=== PATIENT | female | born 1970 | race Caucasian/White ===

== ENCOUNTER 2017-07-21 08:18 | Day surgery (SDC) | payer SELFPAY ==
--- NOTE | 2017-07-21 10:38 | CP.SDSHP ---
Same Day Surgery H & P - History Proposed Procedure: US guided FNA of right thyroid nodule Pre-Op Diagnosis: Right thyroid nodule - Allergies Allergies: Allergies No Known Allergies Allergy (Verified 12/12/16 16:01) - Physical Exam Vital Signs: Vital Signs 07/21/17 08:28 Temperature 97.6 F Pulse Rate 79 Respiratory 20 Rate Blood Pressure 130/88 O2 Sat by Pulse 97 Oximetry Mental Status: Alert & Oriented x3 Neuro: WNL Heart: WNL Lungs: WNL - Impression Impression: Pt with a complex 3 cm right thyroid nodule referred for US guided FNA. Plan US guided FNA. Informed consent obtained. Pt. Evaluated Today:Candidate for Anesthesia & Procedure: No - Date & Time Date: 07/21/17 Time: 10:20 Short Stay Discharge - Short Stay Discharge Admitting Diagnosis/Reason for Visit: THYROID NODULE
--- NOTE | 2017-07-21 10:40 | PCM.SURG1 ---
Surgeon's Initial Post Op Note - Surgeon's Notes Surgeon: Ashutosh Bartlett MD Tool Pusher: NONE Type of Anesthesia: Local Pre-Operative Diagnosis: Right thyroid nodule Operative Findings: US showed a complex 3 cm right thyroid nodule. Post-Operative Diagnosis: Right thyroid nodule Operation Performed: US guided FNA Specimen/Specimens Removed: 25 g FNA x 4 passes Estimated Blood Loss: EBL {In ML}: 0 Blood Products Given: N/A Drains Used: No Drains Post-Op Condition: Good Date of Surgery/Procedure: 07/21/17 Time of Surgery/Procedure: 10:35
[2017-07-21 11:07] VITALS: RESP 14; TEMP 98.8
--- NOTE | 2017-07-21 11:39 | US ---
PROCEDURE: Date of Procedure: 07/21/2017 PROCEDURE: 1. Ultrasound guided FNA of right thyroid nodule, CPT 80661 2. Ultrasound guidance for FNA, 68656 Medications: 3cc 1% Lidocaine HISTORY: Enlarged right thyroid nodule. TECHNIQUE: Following informed consent and procedure time-out, a limited ultrasound patient's neck confirmed the presence of a 3 cm x 1.9 cm complex right thyroid nodule which is predominantly solid. After the patient's neck was prepped and draped in the usual sterile fashion, the skin was anesthetized with 1% lidocaine. Ultrasound-guided fine needle aspiration was then performed of the dominant right thyroid nodule. A total of 4 passes were made into the nodule with 25 gauge needle under ultrasound guidance. The FNA specimen was sent for routine pathology. Post biopsy ultrasound showed no hematoma. IMPRESSION: Ultrasound-guided FNA of the dominant right thyroid nodule.
[2017-07-21 12:23] VITALS: BP 130/90; PULSE 60; O2SAT 98
== END 2017-07-21 11:45 | disposition home or self-care (01) ==
LOC: C.SPRAD 08:18
PROVIDERS: ATTEND Radiology Vascular & Interventional Radiology
DX: E04.2 Nontoxic multinodular goiter (principal)

== ENCOUNTER 2017-10-12 14:01 | Emergency (ER) | payer SELFPAY ==
[2017-10-12] MEDS ORDERED: Naproxen 550 mg Tab PO STA (14:55)
[2017-10-12] MEDS ORDERED: Naproxen 550 mg Tab PO ONE (15:08)
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
[2017-10-12 15:47] VITALS: BP 144/85; PULSE 73; RESP 18; TEMP 98; O2SAT 96
== END 2017-10-12 15:40 | disposition home or self-care (01) ==
LOC: C.ER 14:01
DX: M54.5 Low back pain (principal); I83.93 Asymptomatic varicose veins of bilateral lower extremities

== ENCOUNTER 2018-03-02 13:10 | Emergency (ER) | payer SELFPAY ==
[2018-03-02 13:11] VITALS: BMI 40.9
[2018-03-02 13:21] VITALS: BP 128/89; PULSE 66; RESP 16; TEMP 98.1; O2SAT 98
--- NOTE | 2018-03-02 14:10 | C.PDOC ---
History Of Present Illness 47 y/o female presents with painful swollen area to upper lip, started after she popped a pimple a few days ago. pt denies fever. c/o pain at site. no active drainage. no hx dm. Time Seen by Provider: 03/02/18 13:31 Chief Complaint (Nursing): Abnormal Skin Integrity History Per: Patient History/Exam Limitations: no limitations Onset/Duration Of Symptoms: Days (3) Current Symptoms Are (Timing): Still Present Location Of Injury: Posterior: Face (upper lip) Quality Of Symptoms: Painful, Swollen. denies: Draining Severity: Moderate Past Medical History Reviewed: Historical Data, Nursing Documentation, Vital Signs Vital Signs: Last Vital Signs Temp 98.1 F 03/02/18 13:18 Pulse 66 03/02/18 13:18 Resp 16 03/02/18 13:18 BP 128/89 03/02/18 13:18 Pulse Ox 98 03/02/18 13:18 - Medical History PMH: Anxiety - [facility] Procedures DX ULTRASOUND-HEAD/NECK (02/01/15) PERCUTAN NEEDLE BX OF THYROID GLAND (02/01/15) Family History: States: Unknown Family Hx - Social History Hx Tobacco Use: No Hx Alcohol Use: No Hx Substance Use: No - Immunization History Hx Tetanus Toxoid Vaccination: No Hx Influenza Vaccination: No Hx Pneumococcal Vaccination: No Review Of Systems Constitutional: Negative for: Fever ENT: Positive for: Mouth Pain (lip) Physical Exam - Physical Exam Appears: Non-toxic, No Acute Distress Skin: Warm, Dry, Other (upper lip with firm indurated 1 cm mass with tenderness and erythema, no drainage noted. no fluctuance) ED Course And Treatment O2 Sat by Pulse Oximetry: 98 Medical Decision Making Medical Decision Making: early abscess to upper lip. will tx with bactrim, keflex, warm compresses, f/u pmd, ent, gen sx. pt advised to use warm compresses, f/u outpt and return for worsening swelling. redness or fever. Disposition Counseled Patient/Family Regarding: Diagnosis, Need For Followup, Rx Given - Disposition Referrals: Nick Navarro MD [Staff Provider] - Evert Falcon MD [Staff Provider] - Janet Galarza MD [Staff Provider] - Disposition: HOME/ ROUTINE Disposition Time: 14:16 Condition: GOOD Additional Instructions: Please take antibiotics as prescribed. Take ibuprofen 600 mg by mouth for pain (with food); take tylenol in between doses of ibuprofen if needed for pain. Apply warm compresses several times a day to lip area. Follow up in medical clinic, or wiht Dr Navarro (ear/nose throat) or Dr blankenship, general surgery. Return to ER for fever, worse swelling or redness to lip or any other concerns. Prescriptions: Acetaminophen [Tylenol 325mg tab] 650 mg PO Q6 #30 tab Cephalexin [cephalexin] 500 mg PO Q6 #28 cap Sulfamethoxazole/Trimethoprim [Bactrim DS 800 mg-160 mg] 1 tab PO BID #20 tab Instructions: Skin Abscess Forms: [facility] (Ar[place]ine), General Discharge Instructions - Clinical Impression Clinical Impression: Abscess of lip
== END 2018-03-02 14:28 | disposition home or self-care (01) ==
LOC: C.ER 13:10
DX: K13.0 Diseases of lips (principal)

== ENCOUNTER 2018-05-03 07:56 | Day surgery (SDC) | payer OTHER ==
[2018-05-03 08:37] VITALS: BP 152/93; PULSE 78; RESP 20; TEMP 97.8; O2SAT 98
--- NOTE | 2018-05-03 10:38 | CP.SDSHP ---
Same Day Surgery H & P - History Proposed Procedure: US guided FNA Pre-Op Diagnosis: Thyroid nodule - Allergies Allergies: Allergies No Known Allergies Allergy (Verified 03/02/18 13:18) - Physical Exam Vital Signs: Vital Signs 05/03/18 08:00 Temperature 97.8 F Pulse Rate 78 Respiratory 20 Rate Blood Pressure 152/93 H O2 Sat by Pulse 98 Oximetry - Impression Impression: Pt with thyroid nodule s/p FNA of right thyroid nodule. Pt referred for FNA of left thyroid nodule. US performed: There are no nodules seen in the left thyroid that meet criteria for FNA. No interevention was performed. Referring MD was called and I am awaiting call back. Pt. Evaluated Today:Candidate for Anesthesia & Procedure: No Short Stay Discharge - Short Stay Discharge Admitting Diagnosis/Reason for Visit: DX:E04.1-THYROID NODULE Disposition: HOME/ ROUTINE
== END 2018-05-03 10:40 | disposition home or self-care (01) ==
LOC: C.SPRAD 07:56
PROVIDERS: ATTEND Radiology Vascular & Interventional Radiology
DX: E04.1 Nontoxic single thyroid nodule (principal); Z53.8 Procedure and treatment not carried out for other reasons

== ENCOUNTER 2018-10-20 14:00 | Emergency (ER) | payer OTHER ==
[2018-10-20 14:00] VITALS: BMI 38.3
[2018-10-20 14:33] VITALS: BP 149/92; PULSE 98; RESP 16; TEMP 98.1; O2SAT 100
[2018-10-20] MEDS ORDERED: Bacitracin Ointment 30 GM TUBE TOP ONE (14:41)
[2018-10-20] MEDS ORDERED: Tetanus/Diphtheria Toxoids 0.5 ml Syringe IM ONE ×2 (14:42→14:54)
[2018-10-20] MEDS ORDERED: Bacitracin 500 Units/gm Oint Foilpak UD ONE (14:54)
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
--- NOTE | 2018-10-20 15:30 | CT ---
Date of service: 10/20/2018 PROCEDURE: CT HEAD WITHOUT CONTRAST. HISTORY: passed out with blurred vision COMPARISON: None available. TECHNIQUE: Axial computed tomography images were obtained through the head/brain without intravenous contrast. Radiation dose: Total exam DLP = 1718.35 mGy-cm. This CT exam was performed using one or more of the following dose reduction techniques: Automated exposure control, adjustment of the mA and/or kV according to patient size, and/or use of iterative reconstruction technique. FINDINGS: Streak artifact limits evaluation of the skull base. HEMORRHAGE: No intracranial hemorrhage. BRAIN: No mass effect or edema. The roberts-white matter differentiation appears intact. Please note that MRI with diffusion imaging is more sensitive in the detection of acute ischemic event. VENTRICLES: No hydrocephalus. CALVARIUM: Unremarkable. PARANASAL SINUSES: Unremarkable as visualized. No significant inflammatory changes. MASTOID AIR CELLS: Unremarkable as visualized. No inflammatory changes. OTHER FINDINGS: None. IMPRESSION: No acute intracranial pathology identified.
== END 2018-10-20 15:45 | disposition home or self-care (01) ==
LOC: C.ER 14:00
DX: S00.81XA Abrasion of other part of head, initial encounter (principal); S10.91XA Abrasion of unspecified part of neck, initial encounter; Y04.0XXA Assault by unarmed brawl or fight, initial encounter; Z23 Encounter for immunization

== ENCOUNTER 2018-10-22 22:41 | Emergency (ER) | payer OTHER ==
[2018-10-22 22:41] VITALS: BMI 38.3
[2018-10-22 22:53] VITALS: BP 149/95; PULSE 79; TEMP 98.6; O2SAT 99
--- NOTE | 2018-10-23 00:32 | C.PDOC ---
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 Patient has not tried taking any OTC medication. She reports the pain worsens with weight bearing. Denies weakness or numbness. Time Seen by Provider: 10/22/18 23:01 Chief Complaint (Nursing): Lower Extremity Problem/Injury History Per: Patient History/Exam Limitations: no limitations Onset/Duration Of Symptoms: Hrs Current Symptoms Are (Timing): Still Present Recent travel outside of the [place]: No - Ankle/Foot Description Of Injury: Fell Past Medical History Reviewed: Historical Data, Nursing Documentation, Vital Signs Vital Signs: Last Vital Signs Temp 98.6 F 10/22/18 22:50 Pulse 79 10/22/18 22:50 Resp 14 10/22/18 22:50 BP 149/95 H 10/22/18 22:50 Pulse Ox 99 10/22/18 22:50 - Medical History PMH: Anxiety Denies: Chronic Kidney Disease - [facility] Procedures DX ULTRASOUND-HEAD/NECK (02/01/15) PERCUTAN NEEDLE BX OF THYROID GLAND (02/01/15) Family History: States: Unknown Family Hx - Social History Hx Tobacco Use: No Hx Alcohol Use: No Hx Substance Use: No - Immunization History Hx Tetanus Toxoid Vaccination: No Hx Influenza Vaccination: No Hx Pneumococcal Vaccination: No Review Of Systems Musculoskeletal: Positive for: Other (Right ankle pain) Neurological: Negative for: Weakness, Numbness Physical Exam - Physical Exam Appears: Non-toxic Skin: Warm, Dry Head: Atraumatic, Normacephalic Eye(s): bilateral: Normal Inspection Extremity: Capillary Refill (<2 seconds), No Deformity, Other (Tenderness to right lateral malleolus. Tenderness, swelling, and ecchymosis to proximal aspect of right lateral foot.) Pulses: Left Dorsalis Pedis: Normal, Right Dorsalis Pedis: Normal Neurological/Psych: Oriented x3, Normal Speech, Normal Motor, Normal Sensation Gait: Steady ED Course And Treatment O2 Sat by Pulse Oximetry: 99 (Room air) Pulse Ox Interpretation: Normal - Other Rad Right ankle x-ray X-Ray: Interpreted by Me, Viewed By Me Interpretation: Avulsion fracture of cuboid Progress Note: Motrin administered. Right ankle x-ray ordered, results were positive for fracture. Patient placed in marbella wrap to ankle and ortho shoe, given crutches with instructions, and advised to follow up with ortho/ podiatry for further evaluation. Pt understands to return if severe pain, numbness, moderate swelling, numbness Disposition Counseled Patient/Family Regarding: Diagnosis, Need For Followup, Rx Given - Disposition Referrals: Podiatry Clinic [Outside] Disposition: HOME/ ROUTINE Disposition Time: 00:29 Condition: STABLE Additional Instructions: Elevate leg Apply ICE to area Motrin for pain Follwo up with Podiatry Return to ER if severe pain, numbness, moderate swelling, numbness Prescriptions: Ibuprofen [Motrin] 600 mg PO Q6H #24 tab Instructions: Foot Fracture (DC) Forms: [employer] (Yoruba) - Clinical Impression Clinical Impression: Foot fracture, right - PA / SENIOR DATA ARCHITECT / Resident Statement MD/DO has reviewed & agrees with the documentation as recorded. - Scribe Statement The provider has reviewed the documentation as recorded by the Scribe Gray Gibbs All medical record entries made by the Scribe were at my direction and personally dictated by me. I have reviewed the chart and agree that the record accurately reflects my personal performance of the history, physical exam, medical decision making, and the department course for this patient. I have also personally directed, reviewed, and agree with the discharge instructions and disposition.
[2018-10-23 00:41] VITALS: RESP 20
--- NOTE | 2018-10-23 11:40 | RAD ---
Date of service: 10/22/2018 PROCEDURE: Right Ankle Radiographs. HISTORY: pain, fall, lateral COMPARISON: None available. FINDINGS: BONES: Bone alignment and mineralization are normal. There is a well corticated ossific density lateral to the cuboid. There is no bone destruction. There is a large plantar calcaneal spur. JOINTS: Normal. No osteoarthritis. Ankle mortise maintained. Talar dome intact SOFT TISSUES: Normal. OTHER FINDINGS: None. IMPRESSION: Well corticated ossific density lateral to the cuboid could represent an accessory ossifications center or avulsion fracture. Please correlate with point tenderness. Large plantar calcaneal spur. The final report is tagged to the PA review folder.
== END 2018-10-23 00:40 | disposition home or self-care (01) ==
LOC: C.ER 22:41
DX: S92.211A Displaced fracture of cuboid bone of right foot, initial encounter for closed fracture (principal); W01.0XXA Fall on same level from slipping, tripping and stumbling without subsequent striking against object, initial encounter

== ENCOUNTER 2019-01-11 20:49 | Emergency (ER) | payer SELFPAY ==
[2019-01-11 20:50] VITALS: BMI 38.3
[2019-01-11 21:23] VITALS: BP 141/97; PULSE 69; RESP 20; TEMP 97.8; O2SAT 100
[2019-01-11] MEDS ORDERED: Naproxen 550 mg Tab PO STA (21:48)
--- NOTE | 2019-01-11 21:54 | C.PDOC ---
History Of Present Illness 48 year old female presents to the ED c/o right knee pain for the past 2 weeks. Patient reports she took Tylenol and Naproxen occasionally with minimal relief. Patient denies rash, injury, fall, trauma, weakness, numbness. Time Seen by Provider: 01/11/19 21:24 Chief Complaint (Nursing): Lower Extremity Problem/Injury History Per: Patient History/Exam Limitations: no limitations Onset/Duration Of Symptoms: Days Current Symptoms Are (Timing): Still Present Recent travel outside of the [place]: No Additional History Per: Patient - Knee Description Of Injury: Other Past Medical History Reviewed: Historical Data, Nursing Documentation, Vital Signs Vital Signs: Last Vital Signs Temp 97.8 F 01/11/19 21:20 Pulse 69 01/11/19 21:20 Resp 20 01/11/19 21:20 BP 141/97 H 01/11/19 21:20 Pulse Ox 100 01/11/19 21:20 - Medical History PMH: Anxiety Denies: Chronic Kidney Disease Surgical History: No Surg Hx - [facility] Procedures DX ULTRASOUND-HEAD/NECK (02/01/15) PERCUTAN NEEDLE BX OF THYROID GLAND (02/01/15) Family History: States: Unknown Family Hx - Social History Hx Tobacco Use: No Hx Alcohol Use: No Hx Substance Use: No - Immunization History Hx Tetanus Toxoid Vaccination: No Hx Influenza Vaccination: No Hx Pneumococcal Vaccination: No Review Of Systems Constitutional: Negative for: Fever, Chills Gastrointestinal: Negative for: Nausea, Vomiting, Abdominal Pain Musculoskeletal: Positive for: Leg Pain. Negative for: Back Pain Skin: Negative for: Rash Neurological: Negative for: Weakness, Numbness, Headache, Dizziness Physical Exam - Physical Exam Appears: Non-toxic, No Acute Distress, Other (obese) Skin: Normal Color, Warm, Dry Head: Atraumatic, Normacephalic Eye(s): bilateral: Normal Inspection Neck: Normal ROM, Supple Extremity: Normal ROM, Tenderness (right sided anterior knee cap), No Calf Tenderness, Capillary Refill (< 2 seconds), No Swelling, Other (no effusion, popliteal tenderness) Pulses: Left Dorsalis Pedis: Normal, Right Dorsalis Pedis: Normal Neurological/Psych: Oriented x3, Normal Speech, Normal Cognition, Normal Motor, Normal Sensation Gait: Steady ED Course And Treatment O2 Sat by Pulse Oximetry: 100 (ON RA) Pulse Ox Interpretation: Normal Progress Note: Plan: - Naproxen 550 mg PO. Patient was reassured, given Naproxen for pain. Patient reports improvement after medication was given, use NSAIDs for pain, advised to use knee support and to follow up with PMD. Disposition Counseled Patient/Family Regarding: Diagnosis, Need For Followup - Disposition Referrals: Janet Galarza MD [Staff Provider] - Disposition: HOME/ ROUTINE Disposition Time: 21:51 Condition: STABLE Additional Instructions: Please follow up with PMD Take medications as directed Return to ER if worse Prescriptions: Naproxen [Naprosyn] 1 tab PO BID PRN #20 tab PRN Reason: Pain Instructions: Knee Pain (DC) Forms: [employer] (Bengali) - Clinical Impression Clinical Impression: Knee pain, right - PA / CUTTING ROOM SUPERVISOR / Resident Statement MD/DO has reviewed & agrees with the documentation as recorded. - Scribe Statement The provider has reviewed the documentation as recorded by the Scribe Delvis Ruiz All medical record entries made by the Scribe were at my direction and personally dictated by me. I have reviewed the chart and agree that the record accurately reflects my personal performance of the history, physical exam, medical decision making, and the department course for this patient. I have also personally directed, reviewed, and agree with the discharge instructions and disposition.
[2019-01-11] MEDS ORDERED: Naproxen 550 mg Tab PO ONE (21:56)
== END 2019-01-11 22:02 | disposition home or self-care (01) ==
LOC: C.ER 20:49
DX: M25.561 Pain in right knee (principal)

== ENCOUNTER 2019-01-17 10:17 | Emergency (ER) | payer SELFPAY ==
[2019-01-17 10:17] VITALS: BMI 38.3
[2019-01-17 10:48] VITALS: RESP 20
--- NOTE | 2019-01-17 12:27 | C.PDOC ---
History Of Present Illness 48 year old female presents to the ED with complaint of pain to the right knee. Patient was last seen in [facility] ED on 01/11/19 for the same complaint. Patient was discharged home with Naproxen and was told to follow up with the clinic. She states that she didn't follow up with the clinic. No X-ray was done. Patient denies injury, weakness, and numbness. Time Seen by Provider: 01/17/19 11:18 Chief Complaint (Nursing): Lower Extremity Problem/Injury History Per: Patient History/Exam Limitations: no limitations Current Symptoms Are (Timing): Still Present - Knee Description Of Injury: denies: Fell, Struck With Object, Struck Against Object Past Medical History Reviewed: Historical Data, Nursing Documentation, Vital Signs Vital Signs: Last Vital Signs Temp 98.4 F 01/17/19 10:46 Pulse 67 01/17/19 10:46 Resp 20 01/17/19 10:46 BP 127/84 01/17/19 10:46 Pulse Ox 98 01/17/19 10:46 - Medical History PMH: Anxiety Denies: Chronic Kidney Disease Surgical History: No Surg Hx - [facility] DX ULTRASOUND-HEAD/NECK (02/01/15) PERCUTAN NEEDLE BX OF THYROID GLAND (02/01/15) Family History: States: Unknown Family Hx - Social History Hx Tobacco Use: No Hx Alcohol Use: No Hx Substance Use: No - Immunization History Hx Tetanus Toxoid Vaccination: No Hx Influenza Vaccination: No Hx Pneumococcal Vaccination: No Review Of Systems Constitutional: Negative for: Fever, Chills, Weakness Musculoskeletal: Positive for: Leg Pain (right knee pain) Neurological: Negative for: Weakness, Numbness, Dizziness Physical Exam - Physical Exam Appears: Well, Non-toxic, No Acute Distress Skin: Normal Color, Warm, Dry Head: Atraumatic, Normacephalic Neck: Normal ROM, Supple Chest: Symmetrical, No Deformity Cardiovascular: Rhythm Regular, No Murmur Respiratory: No Accessory Muscle Use Extremity: Tenderness (diffuse tenderness to the right knee, no erythema, no warmth,mild pain with flexon) Neurological/Psych: Oriented x3, Normal Speech, Normal Cognition ED Course And Treatment O2 Sat by Pulse Oximetry: 98 - Other Rad Right Knee X-ray X-Ray: Interpreted by Me, Viewed By Me Interpretation: Accession No. : [id number]. Patient Name / ID : PRUDENCE LUCIO / [id number]. Exam Date : 01/17/2019 11:56:45 ( Approved ). Study Comment : Sex / Age : F / 48Y. Creator : griffin vogt. Dictator : Evert Mcgee MD. Reticle Printer : Community Service Technician : Evert Mcgee MD. Approver2 : Report Date : 01/17/2019 12:12:45. My Comment : . Date of service: 01/17/2019. PROCEDURE: Right Knee Radiographs. HISTORY: pain. COMPARISON: None. FINDINGS: BONES: Normal. No fracture. JOINTS: Normal. No osteoarthritis. JOINT EFFUSION: Questionable trace joint. OTHER FINDINGS: None. IMPRESSION: No evidence of displaced fracture nor dislocation. Progress Note: Right knee X-ray ordered for patient. Knee brace applied to the right knee for patient. Patient discharge and given follow up with the clinic. Re-evaluation. Patient feels better. Discussed results and plan with patient who expresses understanding. All questions answered and there is agreement with the plan to discharge home with instructions. Patient stable for discharge. Return if symptoms persist or worsen. Disposition - Disposition Referrals: [facility] [Outside] Disposition: HOME/ ROUTINE Disposition Time: 12:25 Condition: STABLE Additional Instructions: Follow up in Clinic within 1-2 days. Return to ED if feel worse. Prescriptions: Diclofenac Sodium 1 appl TP BID #100 gel..gram. 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 (Xiomara Hernandez) - Scribe Statement The provider has reviewed the documentation as recorded by the Scribe (Xiomara Hernandez) All medical record entries made by the Scribe were at my direction and personally dictated by me. I have reviewed the chart and agree that the record accurately reflects my personal performance of the history, physical exam, medical decision making, and the department course for this patient. I have also personally directed, reviewed, and agree with the discharge instructions and disposition.
--- NOTE | 2019-01-17 12:39 | RAD ---
Date of service: 01/17/2019 PROCEDURE: Right Knee Radiographs. HISTORY: pain COMPARISON: None. FINDINGS: BONES: Normal. No fracture. JOINTS: Normal. No osteoarthritis. JOINT EFFUSION: Questionable trace joint OTHER FINDINGS: None. IMPRESSION: No evidence of displaced fracture nor dislocation.
[2019-01-17 12:53] VITALS: BP 121/83; PULSE 62; TEMP 97.8
[2019-01-17 15:00] VITALS: O2SAT 98
== END 2019-01-17 12:52 | disposition home or self-care (01) ==
LOC: C.ER 10:17
DX: M25.561 Pain in right knee (principal)